=== PATIENT | male | born 1985 ===

== ENCOUNTER 2024-10-30 15:58 | Emergency (ER) | payer MEDICAID ==
[~2024-10-30] VITALS: Ht 172.7 cm; Wt 79.5 kg
[2024-10-30 16:13] VITALS: BP 155/95; PULSE 95; RESP 16; O2SAT 100
[2024-10-30 18:47] VITALS: TEMP 98.3
== END 2024-10-30 18:48 | disposition left against medical advice (07) ==
LOC: ER 16:00
DX: M79.672 Pain in left foot (principal); Z88.8 Allergy status to other drugs, medicaments and biological substances; Z53.21 Procedure and treatment not carried out due to patient leaving prior to being seen by health care provider